=== PATIENT | male | born 1935 | race Caucasian/White ===

== ENCOUNTER 2020-04-05 07:43 | Day surgery (SDC) | payer MEDICARE, BC ==
[2020-03-28 09:39] LABS: CLARITY,URINE SLIGHTLY CLOUDY (Clear); COLOR,URINE YELLOW (Yellow); GLUCOSE, URINE NEGATIVE (Neg); KETONES,URINE NEGATIVE (Neg); LEUKOCYTE ESTERASE ,URINE NEGATIVE (Neg); NITRITES, URINE NEGATIVE (Neg); OCCULT BLOOD,URINE SMALL (Neg); PH,URINE 5.5 (4.8-8.0); PROTEIN,URINE NEGATIVE (Neg); UROBILINOGEN,URINE 0.2 E.U/dL (0.2-1.0)
[2020-03-28 09:40] LABS: UA COLLECTION TYPE CLN CATCH MIDSTREAM
[2020-03-28 09:43] LABS: BASOPHILS % (AUTO) 0.5 % (0-1); EOSINOPHILS # (AUTO) 0.1 X10'3 (0-0.9); EOSINOPHILS % (AUTO) 1.3 % (0-6); LYMPHOCYTES # (AUTO) 0.8 X10'3 (1.1-4.8); LYMPHOCYTES % (AUTO) 15.1 % (21-51); MEAN CORPUSCULAR HEMOGLOBIN 30.1 PG (27.0-31.0); MEAN CORPUSCULAR HGB CONC 32.9 g/dL (33.0-36.5); MEAN CORPUSCULAR VOLUME 91.6 FL (78-98); MEAN PLATELET VOLUME 9.8 FL (7.4-10.4); MONOCYTES # (AUTO) 0.3 X10'3 (0-0.9); MONOCYTES % (AUTO) 5.7 % (2-12); NEUTROPHILS # (AUTO) 4.3 X10'3 (1.8-7.7); NEUTROPHILS % (AUTO) 77.4 % (42-75); PRE OP HEMATOCRIT 45.5 % (42.0-52.0); PRE OP PLATELET COUNT 149 X10'3 (140-440); RED BLOOD COUNT 4.97 X10'6 (4.70-6.10); RED CELL DISTRIBUTION WIDTH 14.8 % (11.5-14.5)
[2020-03-28 09:48] LABS: HEMOGLOBIN A1C 6.7 % (4.5-6.2)
[2020-03-28 09:50] LABS: BACTERIA,URINE FEW /HPF (Neg); HYALINE CASTS 0-3 /LPF (NEGATIVE); MUCUS STRANDS FEW /LPF (Neg); SQUAMOUS EPITHELIAL CELL,UR FEW /LPF (FEW)
[2020-03-28 09:58] LABS: ALBUMIN 3.5 G/DL (3.4-5.0); ALBUMIN/GLOBULIN RATIO 0.9 (1.1-1.5); ALKALINE PHOSPHATASE 75 IU/L (46-116); BLOOD UREA NITROGEN 22 MG/DL (7-18); BUN/CREATININE RATIO 21.6 (5.4-32.0); CHLORIDE 106 MMOL/L (99-107); CREATININE 1.02 MG/DL (0.60-1.10); PRE OP ALT 17 U/L (30-65); PRE OP ANION GAP 7 (8-16); PRE OP AST 20 U/L (10-37); PRE OP BILIRUB, TOTAL 0.4 MG/DL (0.0-1.0); PRE OP GLUCOSE 124 MG/DL (70-104); PRE OP SODIUM 144 MMOL/L (135-145); TOTAL CARBON DIOXIDE 30.6 MMOL/L (24-32); TOTAL PROTEIN 7.3 G/DL (6.4-8.2); eGFR 69 ML/MIN
[2020-04-05] VITALS (7 sets, daily range): BP systolic 143–177; BP diastolic 77–115
[~2020-04-05] VITALS: Ht 182.9 cm; Wt 75.3 kg
[~2020-04-05 07:43] MED LIST: NO HOME MEDS; clindamycin-Cleocin 900mg/D5W 50 ML IV ONE; famotidine 20mg tablet PO ONE; ringers solution, lacted 1,000 ML IV SCH
[2020-04-05] MEDS ORDERED: neostigmine methylsulfate 1 MG/ML 10ml vial ONE (11:31)
[2020-04-05] MEDS ORDERED: sevoflurane 250ml liquid IH ONE (11:31)
[2020-04-05] MEDS ORDERED: glycopyrrolate 0.2mg/ml inj ONE (11:31)
[2020-04-05] MEDS ORDERED: fentaNYL/PF 50MCG/1 ML 2ML syringe ONE (11:37)
[2020-04-05] MEDS ORDERED: midazolam 2 mg/2 ml injection ONE (11:37)
[2020-04-05] MEDS ORDERED: BUPIVAcaine/PF 2.5 mg/ml (0.25%) 30ml vial ONE (11:38)
[2020-04-05] MEDS ORDERED: propofol inj 20 ML IV ONE (12:24)
[2020-04-05] MEDS ORDERED: rocuronium 10mg/ml inj IV ONE (12:24)
[2020-04-05] MEDS ORDERED: ringers solution, lacted 1,000 ML IV SCH (12:36)
[2020-04-05] MEDS ORDERED: morphine 2 MG/ML inj. syringe IV PRN (12:40)
[2020-04-05] MEDS ORDERED: meperidine/PF 25mg/ml syringe IV PRN ×3 (12:40)
[2020-04-05] MEDS ORDERED: proCHLORperazine 10 MG/2 ml inj IV PRN (12:40)
[2020-04-05] MEDS ORDERED: ondansetron/PF 4mg/2ml inj IV PRN (12:40)
[2020-04-05] MEDS ORDERED: morphine 4 MG/ML inj SYRINge IV PRN (12:40)
[2020-04-05] MEDS ORDERED: ePHEDrine 50MG/ML INJ. ONE (12:42)
[2020-04-05] MEDS ORDERED: bacitracin 15gm ointment TP ONE (13:14)
--- NOTE | 2020-04-05 13:35 | NUR ---
Received from OR via BED, accompanied by Anesthesiologist DR HUFF-- and report given by Anesthesiolgist. PATIENT A&OX4, DENIES PAIN, V/S WNL, NEUROVASCULAR CHECKS INTACT, 20G PIV LUE, SCD ON, FACE AND BACK OP SITES CLEAN NO S/S OF COMPLICATIONS
--- NOTE | 2020-04-05 14:25 | NUR ---
PATIENT A&OX4, DENIES PAIN, V/S WNL, NEUROVASCULAR CHECKS INTACT, 20G PIV LUE D/C, SCD OFF, FACE AND BACK OP SITES CLEAN NO S/S OF COMPLICATIONS. I HAVE REVIEWED D/C INSTRUCTIONS WITH PATIENT AND FAMILY AND THEY HAVE VERBALIZED UNDERSTANDING. PATIENT D/C HOME WITH ALL BELONGINGS AND FAMILY GAVE TRANSPORT HOME.
== END 2020-04-05 14:24 | disposition home or self-care (01) ==
LOC: PAS 07:43
PROVIDERS: ATTEND Surgery
DX: C44.329 Squamous cell carcinoma of skin of other parts of face (principal); C44.599 Other specified malignant neoplasm of skin of other part of trunk; Z85.820 Personal history of malignant melanoma of skin; I10 Essential (primary) hypertension; J44.9 Chronic obstructive pulmonary disease, unspecified; M19.90 Unspecified osteoarthritis, unspecified site; E11.9 Type 2 diabetes mellitus without complications; Z88.0 Allergy status to penicillin; Z79.899 Other long term (current) drug therapy; Z87.01 Personal history of pneumonia (recurrent); Z11.59 Encounter for screening for other viral diseases; Z87.891 Personal history of nicotine dependence; Z85.038 Personal history of other malignant neoplasm of large intestine; Z90.49 Acquired absence of other specified parts of digestive tract; Z85.51 Personal history of malignant neoplasm of bladder; Z95.820 Peripheral vascular angioplasty status with implants and grafts
CPT/HCPCS: 11606; 11646; 13101; 13102; 13132; 36415; 71046; 80053; 81001; 82948; 83036; 85025; 87088; 93005; J2250; J2704; J2710; J3010; J3490; J7120; U0003; A4618; A7000

== ENCOUNTER 2020-04-19 06:11 | Day surgery (SDC) | payer MEDICARE, BC ==
[~2020-04-19] VITALS: Ht 182.9 cm; Wt 74.8 kg
[2020-04-19] VITALS (12 sets, daily range): BP systolic 159–188; BP diastolic 87–125
[2020-04-19 07:31] LABS: BASOPHILS % (AUTO) 0.9 % (0-1); EOSINOPHILS # (AUTO) 0.1 X10'3 (0-0.9); EOSINOPHILS % (AUTO) 2.6 % (0-6); HEMATOCRIT 43.7 % (42.0-52.0); HEMOGLOBIN 14.5 g/dl (14.0-17.9); LYMPHOCYTES # (AUTO) 0.8 X10'3 (1.1-4.8); LYMPHOCYTES % (AUTO) 17.8 % (21-51); MEAN CORPUSCULAR HEMOGLOBIN 30.1 PG (27.0-31.0); MEAN CORPUSCULAR HGB CONC 33.2 g/dL (33.0-36.5); MEAN CORPUSCULAR VOLUME 90.8 FL (78-98); MEAN PLATELET VOLUME 9.3 FL (7.4-10.4); MONOCYTES # (AUTO) 0.3 X10'3 (0-0.9); MONOCYTES % (AUTO) 6.5 % (2-12); NEUTROPHILS # (AUTO) 3.2 X10'3 (1.8-7.7); NEUTROPHILS % (AUTO) 72.2 % (42-75); PLATELET COUNT 145 X10'3 (140-440); RED BLOOD COUNT 4.82 X10'6 (4.70-6.10); RED CELL DISTRIBUTION WIDTH 14.3 % (11.5-14.5); WHITE BLOOD COUNT 4.4 X10'3 (4.5-11.0)
[2020-04-19 07:40] LABS: PARTIAL THROMBOPLASTIN TIME 27 SECONDS (22-32)
[2020-04-19 07:42] LABS: ALANINE AMINOTRANSFERASE 28 U/L (12-78); ALBUMIN 3.4 G/DL (3.4-5.0); ALBUMIN/GLOBULIN RATIO 0.9 (1.1-1.5); ALKALINE PHOSPHATASE 76 IU/L (46-116); ANION GAP 9 (8-16); ASPARTATE AMINO TRANSFERASE 23 U/L (10-37); BILIRUBIN,TOTAL 0.4 MG/DL (0.1-1.0); BLOOD UREA NITROGEN 17 MG/DL (7-18); BUN/CREATININE RATIO 16.2 (5.4-32.0); CALCIUM 8.9 MG/DL (8.5-10.1); CHLORIDE 107 MMOL/L (99-107); CREATININE 1.05 MG/DL (0.60-1.10); GLUCOSE 131 MG/DL (70-104); POTASSIUM 3.6 MMOL/L (3.5-5.1); SODIUM 144 MMOL/L (135-145); TOTAL CARBON DIOXIDE 28.2 MMOL/L (24-32); TOTAL PROTEIN 7.1 G/DL (6.4-8.2); eGFR 67 ML/MIN
[2020-04-19] MEDS ORDERED: BUPIVAcaine/PF 2.5 mg/ml (0.25%) 30ml vial ONE (11:40)
[2020-04-19] MEDS ORDERED: LIDOcaine 1% w/epiNEPHrine 1:200,000 30ml vial ONE (11:40)
[2020-04-19] MEDS ORDERED: esmolol 10mg/ml inj IV ONE (12:02)
[2020-04-19] MEDS ORDERED: sevoflurane 250ml liquid IH ONE (12:02)
[2020-04-19] MEDS ORDERED: fentaNYL/PF 50MCG/1 ML 2ML syringe ONE (12:08)
[2020-04-19] MEDS ORDERED: dexamethasone sod phosphate 4mg/ml inj. ONE (12:55)
[2020-04-19] MEDS ORDERED: phenylephrine 10mg/ml inj. ONE (12:55)
[2020-04-19] MEDS ORDERED: neostigmine methylsulfate 1 MG/ML 10ml vial ONE (12:55)
[2020-04-19] MEDS ORDERED: rocuronium 10mg/ml inj IV ONE (12:55)
[2020-04-19] MEDS ORDERED: ePHEDrine 50MG/ML INJ. ONE (12:55)
[2020-04-19] MEDS ORDERED: glycopyrrolate 0.2mg/ml inj ONE (12:55)
[2020-04-19] MEDS ORDERED: ondansetron/PF 4mg/2ml inj ONE (12:55)
[2020-04-19] MEDS ORDERED: propofol inj 20 ML IV ONE (12:55)
[2020-04-19] MEDS ORDERED: LIDOcaine 2% (20mg/ml) 5ml vial ONE (12:55)
--- NOTE | 2020-04-19 13:13 | NUR ---
Received from OR via [facility], accompanied by Anesthesiologist Mat and report given by Anesthesiolgist. Pt VS stable except BP high, MD ordering meds. Pt responsive to questions. Incision covered with island dressing CDI. Pt dentures and glasses at bedside. Mask on 10L, IVF LR at 100cc/hr.
[2020-04-19] MEDS ORDERED: ringers solution, lacted 1,000 ML IV SCH (13:16)
[2020-04-19] MEDS ORDERED: ondansetron/PF 4mg/2ml inj IV PRN (13:20)
[2020-04-19] MEDS ORDERED: morphine 2 MG/ML inj. syringe IV PRN (13:20)
[2020-04-19] MEDS ORDERED: labetalol 20mg/4ml (5mg/ml) syringe IV ONE ×4 (13:23→14:00)
--- NOTE | 2020-04-19 14:35 | NUR ---
Called Dr Rivero to inform him that ptient's BP has been trending down but took a while to decrease after BP meds given. Now trending 160s/high 90s, and pt status discussed with MD. He states okay for him to go home. Will plan for discharge.
--- NOTE | 2020-04-19 15:03 | NUR ---
Pt discharged to vehicle by wheelchair without incident after all belongings returned to patient. IV dc'd and I reviewed all DC instructions which he verbalized understanding. He knows to excelsior picker pain pills from pharmacy. Dressing remains CDI.
== END 2020-04-19 15:03 | disposition home or self-care (01) ==
LOC: PAS 06:11
PROVIDERS: ATTEND Surgery
DX: D03.59 Melanoma in situ of other part of trunk (principal); I10 Essential (primary) hypertension; J44.9 Chronic obstructive pulmonary disease, unspecified; E11.9 Type 2 diabetes mellitus without complications; Z88.0 Allergy status to penicillin; Z79.899 Other long term (current) drug therapy; Z79.01 Long term (current) use of anticoagulants; Z90.49 Acquired absence of other specified parts of digestive tract; Z95.820 Peripheral vascular angioplasty status with implants and grafts; Z87.891 Personal history of nicotine dependence; Z86.711 Personal history of pulmonary embolism; Z85.51 Personal history of malignant neoplasm of bladder; Z85.038 Personal history of other malignant neoplasm of large intestine; Z85.828 Personal history of other malignant neoplasm of skin
CPT/HCPCS: 21933; 36415; 80053; 82948; 85025; 85610; 85730; J1100; J2001; J2370; J2405; J2704; J2710; J3010; J3490; J7120; A4618; A7000